=== PATIENT | female | born 1990 | race Hispanic/Latino ===

== ENCOUNTER 2020-12-23 18:26 | Emergency (ER) | payer OTHER ==
[~2020-12-23] VITALS: Ht 152.4 cm; Wt 61.7 kg
--- NOTE | 2020-12-23 18:35 | NUR ---
PT AMBULATED FROM POV TO ER 5, NAD
--- NOTE | 2020-12-23 18:41 | ER.PDOC ---
General Chief Complaint: Requesting Medical Care Stated Complaint: FALL,L ANKEL INJURY Time seen by MD: 19:00 Source: patient Exam Limitations: no limitations History of Present Illness Onset: just prior to arrival Where: home Severity: mild Context: twist Associated Symptoms: other Modifying Factors: pain on movement Allergies: Coded Allergies: No Known Drug Allergies (Verified Allergy, Unknown, 12/23/20) Reviewed Nursing Reviewed: Vital Signs, Abn. Noted Review of Systems All Other Systems: Reviewed and Negative Physical Exam General Appearance: Alert, No Apparent Distress Foot: nml inspection 1 - tenderness Ankle: see diagram, tenderness, swelling Gait: antalgic gait Neuro: sensation nml, motor nml Vascular: no vascular compromise Tendons: tendon function nml Leg/Knee/Thigh: uninjured above ankle Skin: warm/dry Head/ENT: nml inspection, pharynx nml Neck/Back: nml inspection, non-tender Resp/CVS: no resp distress Abdomen: non-tender, no organomegaly Results/Orders Results/Orders Orders - IZZY STORM MD Xr Ankle 3v Lt (12/23/20 18:38) ER DEPART Departure Time of Disposition: 19:00 Disposition: 01 HOME / SELF CARE / HOMELESS Impression: Primary Impression: Ankle sprain Condition: Improved Referrals: PCP,UNKNOWN (PCP) PRIMARY CARE PROVIDER Duration or Time Spent with Pa: 16 M IZZY STORM MD December 23, 2020 18:41
[2020-12-23 18:47] VITALS: BP 133/81
--- NOTE | 2020-12-23 19:35 | DIREP ---
PROCEDURE:XRAY ANKLE MIN 3VWS-LT COMPARISON:None. INDICATIONS:injury FINDINGS: BONES:Possible fractures involving the anterior calcaneal process and small chip fracture from the dorsal navicular, findings may be artifactual. JOINTS:Ankle mortise symmetric. SOFT TISSUES:Soft tissue swelling most severely over the dorsum and lateral aspect of the foot. OTHER:No additional findings. CONCLUSION: Questionable anterior calcaneal process fracture and navicular chip fracture. Consider CT or MRI of the left ankle to better assess. Dictated by: Davian Smith M.D. on 12/23/2020 at 07:31 PM
== END 2020-12-23 19:20 | disposition home or self-care (01) ==
LOC: ER 18:26
DX: S93.402A Sprain of unspecified ligament of left ankle, initial encounter (principal); X50.1XXA Overexertion from prolonged static or awkward postures, initial encounter; Y93.89 Activity, other specified; Y92.098 Other place in other non-institutional residence as the place of occurrence of the external cause; Y99.8 Other external cause status
CPT/HCPCS: 29515; 99283; 73610-LT